=== PATIENT | male | born 1960 | race Two or more races ===

== ENCOUNTER 2021-08-16 13:39 | Emergency (ER) | payer BC, OTHER ==
[~2021-08-16] VITALS: Ht 180.3 cm; Wt 77.1 kg
[~2021-08-16 13:39] MED LIST: ASPI-1420 PO; CLOP75TA15 PO; METO25TA3 PO
--- NOTE | 2021-08-16 14:00 | NUR ---
Received pt 61 yrs old male came from home c/o s/p fall down toay and hit his back of head dineses any alter of mentale states no weekness resting wating to be seen by
--- NOTE | 2021-08-16 14:30 | NUR ---
SEEN and evaluted by DR. MORALES pt fully awake and alert no weekness
[2021-08-16] MEDS ORDERED: TDAP [DIPH/PERTUSSIS/TET] 0.5 ML VIAL IM ONE ×2 (14:39→15:00)
--- NOTE | 2021-08-16 14:40 | NUR ---
PT IS WHEELED TO CT SCAN VIA [facility].
--- NOTE | 2021-08-16 14:40 | NUR ---
to ct sacn of head via vinicius julian and alert
--- NOTE | 2021-08-16 14:50 | NUR ---
TD injection 0.5ML given tolorated will no advance reaction
--- NOTE | 2021-08-16 15:30 | NUR ---
CALLED MARY ANNE FOR READ
--- NOTE | 2021-08-16 15:49 | NUR ---
ct scan done negative dr JUAN caicedo with yolette and pt dineses any weeknees no pain plan to d/c home
[2021-08-16 15:52] VITALS: BP 117/78
== END 2021-08-16 15:56 | disposition home or self-care (01) ==
LOC: ER 13:44
DX: S09.8XXA Other specified injuries of head, initial encounter (principal); R42 Dizziness and giddiness; I10 Essential (primary) hypertension; E78.5 Hyperlipidemia, unspecified; Z79.899 Other long term (current) drug therapy; Z79.82 Long term (current) use of aspirin; W01.0XXA Fall on same level from slipping, tripping and stumbling without subsequent striking against object, initial encounter; Y93.89 Activity, other specified; Y92.89 Other specified places as the place of occurrence of the external cause; Y99.8 Other external cause status
CPT/HCPCS: 70450-TC; 90715